=== PATIENT | male | born 1960 | race Caucasian/White ===

== ENCOUNTER → 2020-08-21 | Outpatient (CLI) | payer OTHER ==
[2016-10-18 17:04] VITALS: BP 150/92
[~2020-08-21] MED LIST: ASPI-482 PO; LISI10TA2 PO
--- NOTE | 2020-08-21 08:41 | RAD ---
ABDOMEN COMPLETE Realtime grayscale images of the abdomen with color and pulsed doppler utilized as appropriate. History: RUQ ABD PAIN UMBILICAL HERNIA Comparison: None. Findings: The liver is normal in appearance and echogenicity. No intrahepatic biliary ductal dilatation or mass is seen. No gallstones, pericholecystic fluid, or gallbladder wall thickening are seen. The common bile duct is normal in diameter and measures 0.3 cm. Portal Vein flow is hepatopetal. The pancreas is not well visualized. The aorta and IVC are poorly visualized but normal diameter where visualized. The right kidney is normal in appearance, measuring 12.4 cm in length. Right renal 1.9 cm simple cyst. The left kidney is normal in appearance, measuring 13.8 cm in length. Left renal 4.7 cm simple parapelvic cyst. No hydronephrosis or perinephric fluid are seen bilaterally. The spleen is normal in appearance and measures 10.6 cm. No hernia seen in the periumbilical region. Impression: 1. No acute findings. 2. No periumbilical hernia is seen. Electronically signed by: David Prescott MD (08/21/2020 8:38 AM) [id number]
== END ==
LOC: US 08:27
PROVIDERS: ATTEND Internal Medicine Gastroenterology
DX: K42.9 Umbilical hernia without obstruction or gangrene (principal); R10.11 Right upper quadrant pain
CPT/HCPCS: 76700